=== PATIENT | female | born 1995 | race Two or more races ===

== ENCOUNTER 2016-08-23 09:27 | Emergency (ER) | payer OTHER ==
[2016-08-23] MEDS ORDERED: BENZONATATE 100 MG CAPSULE PO STA (10:29)
[2016-08-23] MEDS ORDERED: guaiFENesin/CODEINE 5 ML UDC PO STA (10:29)
[2016-08-23] MEDS ORDERED: IBUPROFEN 400 MG TABLET PO STA (10:29)
[2016-08-23] MEDS ORDERED: BENZONATATE 100 MG CAPSULE PO ONE (10:47)
[2016-08-23] MEDS ORDERED: IBUPROFEN 400 MG TABLET PO ONE (10:47)
== END 2016-08-23 12:34 | disposition home or self-care (01) ==
DX: J10.1 Influenza due to other identified influenza virus with other respiratory manifestations (principal)
CPT/HCPCS: 71020; 87275; 87276; 99283; 99284; A9270

== ENCOUNTER 2017-09-09 15:05 | Emergency (ER) | payer OTHER ==
[2017-09-09 15:51] LABS: BASOPHILS # (AUTO) 0.1 10^3/uL (0.0-0.1); BASOPHILS % (AUTO) 0.8 %; EOSINOPHILS # (AUTO) 0.1 10^3/uL (0.0-0.7); EOSINOPHILS % (AUTO) 0.7 %; HGB - HEMOGLOBIN 12.4 g/dL (12.0-16.0); LYMPHOCYTES # (AUTO) 2.1 10^3/uL (1.5-3.5); MEAN CORPUSCULAR HEMOGLOBIN 29.2 pg (27.0-31.0); MEAN CORPUSCULAR HGB CONC 31.7 g/dL (32.0-36.0); MEAN PLATELET VOLUME 7.7 fL (7.9-10.8); MONOCYTES # (AUTO) 0.6 10^3/uL (0.0-1.0); MONOCYTES % (AUTO) 7.6 %; NEUTROPHILS # (AUTO) 4.8 10^3/uL (1.5-6.6); NEUTROPHILS % (AUTO) 62.9 %; PLT - PLATELET COUNT 290 10^3/uL (130-450); RED BLOOD COUNT 4.25 10^6/uL (4.20-5.40); RED CELL DISTRIBUTION WIDTH 12.8 % (12.0-15.0); WHITE BLOOD COUNT 7.7 x10^3/uL (4.8-10.8)
[2017-09-09 15:57] LABS: INR 1.1 (0.8-1.2); PT - PROTHROMBIN TIME 12.5 secs (9.9-12.6)
[2017-09-09 16:09] LABS: ALBUMIN 4.3 g/dL (3.2-5.5); ALBUMIN/GLOBULIN RATIO 1.4 (1.0-2.2); BILIRUBIN,TOTAL 0.6 mg/dL (0.2-1.0); CALCIUM 8.9 mg/dL (8.5-10.3); CREATININE 0.6 mg/dL (0.4-1.0); TOTAL PROTEIN 7.4 g/dL (6.7-8.2)
--- NOTE | 2017-09-09 16:37 | ED Physician Documentation ---
PD HPI FEMALE - Stated complaint Stated Complaint: FEMALE - Chief complaint Chief Complaint: Abd Pain - History obtained from History obtained from: Patient - History of Present Illness Timing - onset: How many days ago (12) Timing - duration: Days (12) Timing - details: Gradual onset (she had onset of mid cycle vaginal bleeding 12 days ago which has persisted. Slgihtly heavier than usual period, with some clots at times.), Still present Associated symptoms: Pelvic pain (cramping intermittently), Vaginal bleeding. 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 denies: Weight loss, Weight gain PD PAST MEDICAL HISTORY - Past Medical History Past Medical History: Yes Cardiovascular: None Respiratory: Asthma Neuro: None GI: GERD : None HEENT: None Psych: Anxiety, Panic attacks Musculoskeletal: None Derm: None Other Past Medical History: anemia gets iron infusions - Past Surgical History Past Surgical History: Yes /ASSISTANT PROFESSOR OF ART: section HEENT: Tonsil/Adenoidectomy - Present Medications Home Medications: Ambulatory Orders Medication Instructions Recorded Confirmed Naproxen 375 mg PO BID #20 tablet 09/09/17 Norethindrone AC-Eth Estradiol 1 each PO QID #1 packet 09/09/17 [Loestrin 21 1.5-30 Tablet] - Allergies Allergies/Adverse Reactions: Allergies Allergy/AdvReac Type Severity Reaction Status Date / Time No Known Drug Allergies Allergy Verified 09/09/17 17:28 - Social History Does the pt smoke?: No Smoking Status: Never smoker Does the pt drink ETOH?: No Does the pt have substance abuse?: No - Immunizations Immunizations are current?: Yes PD ED PE NORMAL - Vitals Vital signs reviewed: Yes - General General: Alert and oriented X 3, No acute distress, Well developed/nourished - HEENT HEENT: Pharynx benign - Neck Neck: Supple, no meningeal sign, No adenopathy, Thyroid normal - Cardiac Cardiac: RRR, No murmur - Respiratory Respiratory: Clear bilaterally - Abdomen Abdomen: Normal bowel sounds, Soft, Non tender, Non distended, Other (some darker thicker hairs noted around umbilicus. Deferred breast exam but she says she has hair around nipples. ) - Female Female : Deferred - Rectal Rectal: Deferred - Back Back: No CVA TTP - Derm Derm: Normal color, Warm and dry - Neuro Neuro: Alert and oriented X 3, No motor deficit, Normal speech Results - Vitals Vitals: Vital Signs - 24 hr 09/09/17 09/09/17 09/09/17 15:13 18:45 19:35 Temperature 36.7 C 36.5 C Heart Rate 88 75 72 Respiratory 18 16 14 Rate Blood Pressure 113/81 H 130/81 H 130/75 O2 Saturation 99 98 100 Oxygen O2 Source Room air - Labs Labs: Laboratory Tests 09/09/17 09/09/17 09/09/17 15:41 15:41 15:41 WBC 7.7 RBC 4.25 Hgb 12.4 Hct 39.1 MCV 92.0 MCH 29.2 MCHC 31.7 L RDW 12.8 Plt Count 290 MPV 7.7 L Neut # 4.8 Lymph # 2.1 Trinity # 0.6 Eos # 0.1 Baso # 0.1 Absolute Nucleated RBC 0.00 Nucleated RBC % 0.0 PT 12.5 INR 1.1 APTT 30.5 Sodium Potassium Chloride Carbon Dioxide Anion Gap BUN Creatinine Estimated GFR (MDRD) Glucose Calcium Total Bilirubin AST ALT Alkaline Phosphatase Total Protein Albumin Globulin Albumin/Globulin Ratio Lipase TSH Prolactin Total Testosterone Urine Color Urine Clarity Urine pH Ur Specific [place] Urine Protein Urine Glucose (UA) Urine Ketones Urine Occult Blood Urine Nitrite Urine Bilirubin Urine Urobilinogen Ur Leukocyte Esterase Urine RBC Urine WBC Ur Squamous Epith Cells Urine Bacteria Ur Microscopic Review Urine Culture Comments Urine HCG, Qual Blood Type O NEGATIVE Antibody Screen NEGATIVE 09/09/17 09/09/17 09/09/17 15:41 15:41 15:41 WBC RBC Hgb Hct MCV MCH MCHC RDW Plt Count MPV Neut # Lymph # Trinity # Eos # Baso # Absolute Nucleated RBC Nucleated RBC % PT INR APTT Sodium 137 Potassium 3.9 Chloride 103 Carbon Dioxide 26 Anion Gap 8.0 BUN 14 Creatinine 0.6 Estimated GFR (MDRD) 123 Glucose 96 Calcium 8.9 Total Bilirubin 0.6 AST 17 ALT 19 Alkaline Phosphatase 35 L Total Protein 7.4 Albumin 4.3 Globulin 3.1 Albumin/Globulin Ratio 1.4 Lipase 14 L TSH 0.88 Prolactin 6.36 Total Testosterone 29 Urine Color Urine Clarity Urine pH Ur Specific [place] Urine Protein Urine Glucose (UA) Urine Ketones Urine Occult Blood Urine Nitrite Urine Bilirubin Urine Urobilinogen Ur Leukocyte Esterase Urine RBC Urine WBC Ur Squamous Epith Cells Urine Bacteria Ur Microscopic Review Urine Culture Comments Urine HCG, Qual Blood Type Antibody Screen 09/09/17 19:24 WBC RBC Hgb Hct MCV MCH MCHC RDW Plt Count MPV Neut # Lymph # Trinity # Eos # Baso # Absolute Nucleated RBC Nucleated RBC % PT INR APTT Sodium Potassium Chloride Carbon Dioxide Anion Gap BUN Creatinine Estimated GFR (MDRD) Glucose Calcium Total Bilirubin AST ALT Alkaline Phosphatase Total Protein Albumin Globulin Albumin/Globulin Ratio Lipase TSH Prolactin Total Testosterone Urine Color YELLOW Urine Clarity HAZY Urine pH 6.0 Ur Specific [place] >=1.030 H Urine Protein NEGATIVE Urine Glucose (UA) NEGATIVE Urine Ketones NEGATIVE Urine Occult Blood MODERATE H Urine Nitrite NEGATIVE Urine Bilirubin NEGATIVE Urine Urobilinogen 0.2 (NORMAL) Ur Leukocyte Esterase NEGATIVE Urine RBC 11-25 H Urine WBC 0-3 Ur Squamous Epith Cells MOD Squamous H Urine Bacteria Few Ur Microscopic Review INDICATED Urine Culture Comments NOT INDICATED Urine HCG, Qual NEGATIVE Blood Type Antibody Screen - Rads (name of study) pelvic U/S Radiology: Prelim report reviewed (normal ovaries without cysts; small 2.5 cm fibroid posterior uterus. ) PD MEDICAL DECISION MAKING - ED course Complexity details: reviewed results, considered differential, d/w patient, d/w clinical application consultant (Dr. Alcala, ASSISTANT PROFESSOR OF ART production line technician, for advise. ) Departure - Departure Disposition: 01 Home, Self Care Clinical Impression: Vaginal bleeding, Abnormal hair pattern Fibroid uterus Qualifiers: Uterine leiomyoma location: intramural Qualified Code(s): D25.1 - Intramural leiomyoma of uterus Condition: Stable Record reviewed to determine appropriate education?: Yes Instructions: ED Bleed Irregular Vaginal Follow-Up: MAGAN ESCOBEDO [Primary Care Provider] - Prescriptions: Naproxen 375 mg PO BID #20 tablet Norethindrone AC-Eth Estradiol [Loestrin 21 1.5-30 Tablet] 1 each PO QID #1 packet Comments: Naproxen twice daily for 7-10 days. ASSISTANT PROFESSOR OF ART physician production line technician suggested taking hormone to override your hormone cycle right now, so regular oral contraceptive packet, but to take a tablet 4 times daily for 3 days then twice daily for 3 days, then to daily. This is supposed to stop the period/bleeding in the next couple of days or so. Follow up your PCP/ASSISTANT PROFESSOR OF ART if not improved over the next few days. Discharge Date/Time: 09/09/17 19:42
[2017-09-09 18:03] LABS: THYROID STIMULATING HORMONE 0.88 uIU/mL (0.34-5.60)
[2017-09-09 18:09] LABS: PROLACTIN 6.36 ng/mL
[2017-09-09] MEDS ORDERED: IBUPROFEN 600 MG TABLET PO STA (19:02)
[2017-09-09] MEDS ORDERED: NORGESTREL-ETHINYL ESTRADIOL TABLET PO STA (19:02)
--- NOTE | 2017-09-09 19:16 | Ultrasound Preliminary Report ---
Exam: US PEL NON OB W/TV + DOP LTD IMPRESSION: 1. No endometrial mass or polyp. 2. Both ovaries and adnexal are normal. 3. Questionable 2.5 cm posterior to each middle fibroid. [facility] SITE ID: [id number]
[2017-09-09 19:37] LABS: BILIRUBIN,URINE NEGATIVE (NEGATIVE); GLUCOSE, URINE (UA) NEGATIVE (NEGATIVE); KETONES,URINE (UA) NEGATIVE (NEGATIVE); LEUKOCYTE ESTERASE, URINE NEGATIVE (NEGATIVE); NITRITE,URINE NEGATIVE (NEGATIVE); OCCULT BLOOD,URINE MODERATE (NEGATIVE); PROTEIN,URINE NEGATIVE (NEGATIVE); UROBILINOGEN,URINE 0.2 (NORMAL) E.U./dL (NORMAL)
[2017-09-09 19:40] LABS: CLARITY,URINE HAZY (CLEAR); HCG UR QUAL NEGATIVE
--- NOTE | 2017-09-09 19:40 | Ultrasound Report ---
EXAM: PELVIC ULTRASOUND EXAM DATE: 09/09/2017 06:36 PM. CLINICAL HISTORY: Right pelvic cramping; vaginal bleeding for 12 days. COMPARISON: None. TECHNIQUE: Realtime transabdominal pelvic scan performed to identify the uterus and adnexa and as an overview of other pelvic structures, followed by transvaginal scan to provide greater detail of the u terus and adnexa, with static image documentation. FINDINGS: Uterus: 7.8 x 4.2 x 5.1 cm, volume 88.6 cc. Retroverted and retroflexed position. Heterogeneous myome trium. Masses: Questionable heterogeneous region in the posterior fundal uterine region measuring 2.4 x 1.6 x 2.5 cm. This could represent a small fibroid versus artifact. Endometrium: 6.7 mm. Normal. Cervix: Unremarkable. Right Ovary: 3 x 2.3 x 3.3 cm, volume 12.1 cc. Normal echotexture and blood flow. Left Ovary: 3.3 x 2.1 x 2.4 cm, volume 8.4 cc. Normal echotexture and blood flow. Free Fluid: None. Other: None. IMPRESSION: 1. No endometrial mass or polyp. 2. Both ovaries and adnexa are normal. 3. Questionable 2.5 cm posterior uterine intramural fibroid. [facility] Referring Provider Line: [phone] SITE ID: [id number]
[2017-09-09 19:42] VITALS: BP 130/75
[2017-09-09 19:48] LABS: BACTERIA,URINE Few /HPF (None Seen); SQUAMOUS EPITHELIAL CELL,UR MOD Squamous (<= Few)
== END 2017-09-09 19:42 | disposition home or self-care (01) ==
LOC: ED 15:05
DX: N93.9 Abnormal uterine and vaginal bleeding, unspecified (principal); L68.9 Hypertrichosis, unspecified; D25.1 Intramural leiomyoma of uterus; Z86.2 Personal history of diseases of the blood and blood-forming organs and certain disorders involving the immune mechanism
CPT/HCPCS: 36415; 76830; 76856; 80053; 81001; 81025; 83690; 84146; 84403; 84443; 85025; 85610; 85730; 86850; 86900; 86901; 93976; 99283; A9270; S4993; 81003; 87086